=== PATIENT | female | born 1965 | race American Indian/Alaskan Native ===

== ENCOUNTER 2018-08-26 09:27 | Outpatient (CLI) | payer OTHER ==
--- NOTE | 2018-08-26 12:10 | XRay Report ---
BILATERAL WRISTS, 2 VIEWS History: Pain. Findings: Normal bone mineralization. No acute osseous findings or joint pathology is identified. The soft tissues are unremarkable. Impression: Unremarkable bilateral wrists.
--- NOTE | 2018-08-26 12:10 | XRay Report ---
BILATERAL HANDS, 2 VIEWS History: Pain. Findings: Normal bone mineralization. No acute osseous findings or joint pathology is identified. The soft tissues are unremarkable. Impression: Unremarkable bilateral hands.
== END 2018-08-26 09:28 | disposition home or self-care (01) ==
LOC: XRAY 09:27
PROVIDERS: ATTEND Internal Medicine
DX: E11.9 Type 2 diabetes mellitus without complications (principal); I10 Essential (primary) hypertension; M19.042 Primary osteoarthritis, left hand; M19.041 Primary osteoarthritis, right hand